=== PATIENT | female | born 1995 | race Caucasian/White ===

== ENCOUNTER → 2025-02-27 08:41 | Outpatient (CLI) | payer OTHER, SELFPAY ==
[2025-02-27 09:10] LABS: Add Manual Diff / Slide Review NO; Hematocrit 41.6 % (36-46); Hemoglobin 14.1 g/dL (12.0-16.0); Lymphocytes Absolute Auto 2100 /uL (1100-4500); Mean Corpuscular HGB Conc 33.9 % (30-36); Mean Corpuscular Hemoglobin 31.0 PG (26-34); Mean Corpuscular Volume 91.3 fL (80-100); Platelet Count 210 X10^3/uL (150-400)
[2025-02-27 10:09] LABS: Hepatitis B Surface Antigen NEGATIVE s/c (NEGATIVE)
[2025-02-27 10:26] LABS: HIV 1 & 2 Ab/Ag 4th Gen Combo NEGATIVE (NEGATIVE); Hep C Virus Ab w/Reflex Quant NEGATIVE s/c (NEGATIVE)
[2025-02-27 13:18] LABS: Appearance Urine UA CLEAR; Bilirubin Urine UA NEGATIVE (NEGATIVE); Color Urine UA YELLOW; Glucose Urine UA NEGATIVE (Negative); Ketones Urine UA NEGATIVE (NEGATIVE); Leukocyte Esterase Urine UA NEGATIVE (NEGATIVE); Nitrite Urine UA NEGATIVE (Negative); Occult Blood Urine UA NEGATIVE (Negative); Protein Urine UA NEGATIVE (Negative); Specific Gravity Urine UA 1.015 (1.000-1.035); Urobilinogen Urine UA 0.2 E.U./dL (0.2)
[2025-02-27 13:21] LABS: pH Urine UA 6.5 (4.5-8.0)
[2025-02-27 14:43] LABS: Urine N gonorrhoeae NOT DETECTED
[2025-02-27 14:44] LABS: Urine Chlamydia NOT DETECTED
== END ==
PROVIDERS: PCP Family Medicine; Referring Provider Family Medicine; Visit Provider Family Medicine
DX: Z34.01 Encounter for supervision of normal first pregnancy, first trimester (principal); Z34.80 Encounter for supervision of other normal pregnancy, unspecified trimester
CPT/HCPCS: 36415; 80055; 81003; 86787; 86803; 86850; 86900; 86901; 87086; 87389; 87491; 87591

== ENCOUNTER → 2025-03-12 16:21 | Outpatient (CLI) | payer OTHER, SELFPAY ==
--- NOTE | 2025-03-12 16:22 | DI.US.S_ITS ---
PROCEDURE: US OB <= 14 WEEKS FETUS INDICATIONS: dating and viability OUTSIDE/PRIOR DATING DATA: Last menstrual period (LMP): 01/11/2025. LMP-based estimated date of delivery (DEIDRA): 10/18/2025. First dating scan (date and location): 03/12/2025. Estimated date of delivery (DEIDRA) from first dating scan: 10/14/2025. TECHNIQUE: Real-time scanning was performed of the fetus and maternal pelvic organs, with image documentation. Endovaginal scanning was also performed to better visualize the fetus and maternal ovaries. COMPARISON: None. FINDINGS: Embryo: Coolin-rump length measuring 1.7 cm, gestational age 8 weeks 1 day. Heart rate: 158 bpm A yolk sac is seen. No perigestational hemorrhage. Maternal organs: Ovaries are within normal limits. Right ovarian anechoic cyst measuring 1.7 cm. Possibly a corpus luteum. Cervix measures 2.7 cm. IMPRESSION: 1. Yun living intrauterine at 8 weeks 1 day based on today's crown rump length. 2. No perigestational hemorrhage. We strive to produce accurate, complete, and clear reports of imaging services. To assist us in improving patient care, this report was composed using standard report templates and voice recognition software. Therefore, it may contain abnormal punctuation, insertions and/or omissions. Occasional wrong-word or sound-alike substitutions may occur. Though we review the report and make efforts to correct it, we do recommend that the report be read carefully in proper context to recognize any text inaccuracies Dictated by: Josr Irby M.D. on 03/13/2025 at 18:12 Approved by: Josr Irby M.D. on 03/13/2025 at 18:16
== END ==
PROVIDERS: PCP Family Medicine; Referring Provider Family Medicine; Visit Provider Family Medicine
DX: Z34.80 Encounter for supervision of other normal pregnancy, unspecified trimester (principal); N83.201 Unspecified ovarian cyst, right side; Z3A.08 8 weeks gestation of pregnancy
CPT/HCPCS: 76801

== ENCOUNTER → 2025-06-02 12:51 | Outpatient (CLI) | payer OTHER, SELFPAY ==
--- NOTE | 2025-06-02 12:52 | DI.US.S_ITS ---
PROCEDURE: US OB >= 14 WEEKS FETUS INDICATIONS: ANATOMY US OUTSIDE/PRIOR DATING DATA: Last menstrual period (LMP): 01/11/2025 LMP-based estimated date of delivery (DEIDRA): 10/18/2025. First dating scan (date and location): 03/12/2025. Estimated date of delivery (DEIDRA) from first dating scan: 10/14/2025. Working DEIDRA is 10/18/2025. TECHNIQUE: Real-time scanning was performed of the fetus, with image documentation and biometric measurements. Endovaginal scanning: No COMPARISON: [facility], OB <= 14 WEEKS FETUS, 03/12/2025, 16:48. FINDINGS: General: A single living intrauterine gestation is present. Presentation: Variable. Placenta: Placental position is anterior, without previa. Amniotic fluid index: 16.3 cm, normal range is 5-24 cm. Single deepest vertical pocket is 5.3 cm. heart rate: 149 beats per minute. Maternal cervical canal: 3.2 cm long. Normal lower limit is 2.5 cm. biometrics: Biparietal diameter: 20 weeks 4 days Head circumference: 20 weeks 4 days Abdominal circumference: 20 weeks 4 days Femur length: 26 weeks 1 day Clinically estimated gestational age: 20 weeks 2 days Composite gestational age from present scan: 20 weeks 3 days Estimated weight and percentile: 329 g; 50 percentile Anatomic survey: Neuro: Ventricles are non-dilated at less than 10 mm. Cisterna magna is normal at 3-11 mm. Cerebellum is normal in size and morphology. Nuchal skin fold: Normal at less than 6 mm between 14-21 weeks gestational age. Face: Nose and lips, facial profile are normal. Spine: No evidence for spina bifida. Heart: 4-chambered heart is present, with and outflow tracts are not well seen. Diaphragm: Diaphragm is intact. Stomach: Left-sided stomach is present. Kidneys: No hydronephrosis. Normal is less than 5 mm in 2nd trimester, less than 7 mm in 3rd trimester. Cord: 3-vessel cord has orthotopic insertion. Bladder: Normal in size. Extremities: All 4 extremities identified. IMPRESSION: 1. Single living IUP redemonstrated and interval growth is within normal limits. 2. Outflow tracts not well seen; otherwise normal anatomic survey. Short- term follow-up recommended. We strive to produce accurate, complete, and clear reports of imaging services. To assist us in improving patient care, this report was composed using standard report templates and voice recognition software. Therefore, it may contain abnormal punctuation, insertions and/or omissions. Occasional wrong-word or sound-alike substitutions may occur. Though we review the report and make efforts to correct it, we do recommend that the report be read carefully in proper context to recognize any text inaccuracies. Dictated by: Lenard DEGROOT Interpreted: Raghavendra Loyola MD on 06/02/2025 at 14:56 Transcribed by: CINDI on 06/02/2025 at 14:59 Approved by: Raghavendra Loyola M.D. on 06/02/2025 at 21:27
== END ==
LOC: US 12:51
PROVIDERS: PCP Family Medicine; Referring Provider Family Medicine; Visit Provider Family Medicine
DX: Z34.80 Encounter for supervision of other normal pregnancy, unspecified trimester (principal); Z3A.20 20 weeks gestation of pregnancy
CPT/HCPCS: 76811

== ENCOUNTER → 2025-06-26 10:14 | Outpatient (CLI) | payer OTHER, SELFPAY ==
--- NOTE | 2025-06-26 10:14 | DI.US.S_ITS ---
PROCEDURE: US OB LIMITED INDICATIONS: f/up poorly vsualized outflow tracts on anatomy US OUTSIDE/PRIOR DATING DATA: Last menstrual period (LMP): 01/11/2025. LMP-based estimated date of delivery (DEIDRA): 10/18/2025. First dating scan (date and location): 02/12/2025. Estimated date of delivery (DEIDRA) from first dating scan: 10/14/2025. TECHNIQUE: Real-time scanning was performed of the fetus, with image documentation. Endovaginal scanning: Not performed COMPARISON: None. FINDINGS: A single living intrauterine gestation is present. Presentation: Breech. Placenta: Placental position is anterior, without previa. Amniotic fluid index: 17.6 cm, normal range is 5-24 cm. Single deepest vertical pocket is 4.9 cm. heart rate: 141 beats per minute. Maternal cervical canal: 4.8 cm long. Normal lower limit is 2.5 cm. Clinically estimated gestational age: 23 weeks 5 days Limited anatomic survey: Heart demonstrated and normal. Chest, abdomen, kidneys, bladder normal. IMPRESSION: Single live intrauterine . Normal limited anatomy scan. Dictated by: Binh Mccoy M.D. on 06/26/2025 at 17:13 Approved by: Binh Mccoy M.D. on 06/26/2025 at 17:18
== END ==
PROVIDERS: PCP Family Medicine; Referring Provider Family Medicine; Visit Provider Family Medicine
DX: Z34.82 Encounter for supervision of other normal pregnancy, second trimester (principal); Z3A.23 23 weeks gestation of pregnancy
CPT/HCPCS: 76815

== ENCOUNTER → 2025-07-23 09:55 | Outpatient (CLI) | payer OTHER, SELFPAY ==
[2025-07-23 11:48] LABS: Hematocrit 37.0 % (36-46); Hemoglobin 12.7 g/dL (12.0-16.0); Mean Corpuscular HGB Conc 34.3 % (30-36); Mean Corpuscular Hemoglobin 31.5 PG (26-34); Mean Corpuscular Volume 91.8 fL (80-100); Platelet Count 176 X10^3/uL (150-400)
[2025-07-23 12:10] LABS: GTT (PREG) 1 Hour PP 50gm Dose 73 mg/dL (76-139)
== END ==
PROVIDERS: Referring Provider Family Medicine; Visit Provider Family Medicine
DX: Z34.80 Encounter for supervision of other normal pregnancy, unspecified trimester (principal); R53.83 Other fatigue
CPT/HCPCS: 82950; 85027